=== PATIENT | female | born 1980 | race Caucasian/White ===

== ENCOUNTER 2021-08-12 11:48 | Inpatient (IN) | payer BC ==
[~2021-08-12] VITALS: Ht 162.6 cm; Wt 90.9 kg
[2021-08-12] VITALS (11 sets, daily range): BP systolic 100–117; BP diastolic 58–74
[2021-08-12] MEDS ORDERED: normal saline 1000ML IV soln IVB ONE (11:50)
[2021-08-12] MEDS ORDERED: ondansetron/PF 4mg/2ml inj IV ONE (11:50)
[2021-08-12 12:13] LABS: BASOPHILS # (AUTO) 0.1 X10'3 (0-0.2); BASOPHILS % (AUTO) 0.6 % (0-1); EOSINOPHILS # (AUTO) 0.1 X10'3 (0-0.9); EOSINOPHILS % (AUTO) 0.8 % (0-6); HEMOGLOBIN 14.4 g/dl (12.0-16.0); LYMPHOCYTES # (AUTO) 2.3 X10'3 (1.1-4.8); LYMPHOCYTES % (AUTO) 20.8 % (21-51); MEAN CORPUSCULAR HEMOGLOBIN 28.1 PG (27.0-31.0); MEAN CORPUSCULAR HGB CONC 34.4 g/dL (33.0-36.5); MEAN CORPUSCULAR VOLUME 81.5 FL (78-98); MEAN PLATELET VOLUME 8.5 FL (7.4-10.4); MONOCYTES # (AUTO) 0.6 X10'3 (0-0.9); MONOCYTES % (AUTO) 5.7 % (2-12); NEUTROPHILS # (AUTO) 7.9 X10'3 (1.8-7.7); NEUTROPHILS % (AUTO) 72.1 % (42-75); PLATELET COUNT 377 X10'3 (140-440); RED BLOOD COUNT 5.15 X10'6 (4.20-5.60); WHITE BLOOD COUNT 10.9 X10'3 (4.5-11.0)
[2021-08-12 12:24] LABS: ALANINE AMINOTRANSFERASE 19 U/L (12-78); ALBUMIN 3.7 G/DL (3.4-5.0); ALBUMIN/GLOBULIN RATIO 0.9 (1.1-1.5); ALKALINE PHOSPHATASE 106 IU/L (46-116); ANION GAP 8 (8-16); ASPARTATE AMINO TRANSFERASE 18 U/L (10-37); BILIRUBIN,TOTAL 0.5 MG/DL (0.1-1.0); BLOOD UREA NITROGEN 9 MG/DL (7-18); BUN/CREATININE RATIO 10.7 (6.6-38.0); CALCIUM 8.8 MG/DL (8.5-10.1); CHLORIDE 101 MMOL/L (99-107); CREATININE 0.84 MG/DL (0.40-0.90); GLUCOSE 102 MG/DL (70-104); LIPASE < 50 U/L (73-393); POTASSIUM 3.1 MMOL/L (3.5-5.1); SODIUM 137 MMOL/L (135-145); TOTAL CARBON DIOXIDE 27.9 MMOL/L (24-32); TOTAL PROTEIN 7.7 G/DL (6.4-8.2); eGFR 75 ML/MIN
[2021-08-12 12:29] LABS: HCG SERUM QL NEGATIVE
[2021-08-12] MEDS ORDERED: potassium CL 10mEq/100ml bag 100 ML IV ONE (12:55)
[2021-08-12 13:12] LABS: CLARITY,URINE SLIGHTLY CLOUDY (Clear); COLOR,URINE YELLOW (Yellow); GLUCOSE, URINE NEGATIVE (Neg); KETONES,URINE NEGATIVE (Neg); LEUKOCYTE ESTERASE ,URINE NEGATIVE (Neg); NITRITES, URINE NEGATIVE (Neg); OCCULT BLOOD,URINE NEGATIVE (Neg); PROTEIN,URINE NEGATIVE (Neg); UROBILINOGEN,URINE 0.2 E.U/dL (0.2-1.0)
[2021-08-12 13:34] LABS: UA COLLECTION TYPE NON-SPECIFIED
[2021-08-12 13:38] LABS: BACTERIA,URINE 1+ /HPF (Neg); MUCUS STRANDS MODERATE /LPF (Neg); RBC,URINE NONE SEEN /HPF (0-2); SQUAMOUS EPITHELIAL CELL,UR MODERATE /LPF (FEW); WBC,URINE 0-4 /HPF (0-4)
[2021-08-12] MEDS ORDERED: ESOM40CA54 PO (14:26)
[2021-08-12] MEDS ORDERED: HYDR25TA4 PO (14:26)
[2021-08-12] MEDS ORDERED: ESTR1TAB28 PO (14:26)
[2021-08-12] MEDS ORDERED: ATOR-2 PO (14:26)
[2021-08-12] MEDS ORDERED: magnesium 4gm in 100ml NS 100 ML IV PRN (14:30)
[2021-08-12] MEDS ORDERED: mag hydrox/Alum hydrox/simeth 30ml oral suspension PO PRN (14:30)
[2021-08-12] MEDS ORDERED: potassium CL 10mEq/100ml bag 100 ML IV PRN (14:30)
[2021-08-12] MEDS ORDERED: ondansetron/PF 4mg/2ml inj IV PRN ×2 (14:30→16:05)
[2021-08-12] MEDS ORDERED: acetaminophen 325mg tablet PO PRN ×2 (14:30)
[2021-08-12] MEDS ORDERED: magnesium 2GM in 50ml NS 50 ML IV PRN (14:30)
[2021-08-12] MEDS ORDERED: CefTRIAXone 2gm/NS 100ml IVPB 100 ML IV ONE (14:30)
[2021-08-12] MEDS ORDERED: POTASSIUM BICARB 20meq eff tab 20 MEQ TABLET.EFF PO PRN (14:30)
[2021-08-12] MEDS ORDERED: morphine 2 MG/ML inj. syringe IV PRN ×3 (14:30→16:05)
[2021-08-12] MEDS ORDERED: HYDROcodone/acetaminophen 5mg/325mg tablet PO PRN (14:30)
[2021-08-12] MEDS ORDERED: magnesium Cl slow-release 64mg tablet PO PRN (14:30)
[2021-08-12] MEDS: normal saline 1000ml 1,000 ML IV SCH ×2 (15:01→23:22)
--- NOTE | 2021-08-12 15:10 | NUR ---
DR THOMPSON AT BEDSIDE.
[2021-08-12] MEDS ORDERED: BUPIVAcaine/PF 2.5 mg/ml (0.25%) 30ml vial ONE (15:21)
--- NOTE | 2021-08-12 15:22 | NUR ---
PT HAS COMPLETE HYSTRECTOMY .
[2021-08-12] MEDS ORDERED: fentaNYL/PF 50MCG/1 ML 2ML syringe IV PRN ×2 (16:05)
[2021-08-12] MEDS ORDERED: ringers solution, lacted 1,000 ML IV SCH (16:05)
[2021-08-12] MEDS ORDERED: hydrALAZINE 20mg/ml inj. IV PRN (16:05)
[2021-08-12] MEDS ORDERED: labetalol 20mg/4ml (5mg/ml) syringe IV PRN (16:05)
[2021-08-12] MEDS ORDERED: morphine 4 MG/ML inj SYRINge IV PRN (16:05)
[2021-08-12] MEDS: pantoprazole 40mg Tablet.DR PO SCH (16:48)
[2021-08-12] MEDS: metroNIDAZOLE-Flagyl 500mg/NS 100 ML IV SCH ×2 (16:51→23:56)
[2021-08-12] MEDS ORDERED: midazolam 1 mg/ML 2ml injection ONE (20:42)
[2021-08-12] MEDS ORDERED: dexamethasone sod phosphate 10mg/ml inj ONE (20:42)
[2021-08-12] MEDS ORDERED: FENTANYL CITRATE/PF 50 MCG/1 ML VIAL ONE (20:42)
[2021-08-12] MEDS ORDERED: sevoflurane 250ml liquid IH ONE (20:42)
[2021-08-12] MEDS ORDERED: neostigmine methylsulfate 1 MG/ML 10ml vial ONE (20:42)
[2021-08-12] MEDS ORDERED: glycopyrrolate 0.2mg/ml inj ONE (20:42)
[2021-08-12] MEDS ORDERED: LIDOcaine 1%/PF 5ML 10 MG/ML VIAL ONE (20:43)
[2021-08-12] MEDS ORDERED: propofol inj 20 ML IV ONE (20:43)
[2021-08-12] MEDS ORDERED: ondansetron/PF 4mg/2ml inj ONE (20:44)
[2021-08-12] MEDS ORDERED: rocuronium 10mg/ml inj IV ONE (20:44)
[2021-08-12] MEDS ORDERED: temazepam 15mg capsule PO PRN (21:00)
[2021-08-12] MEDS ORDERED: acetaminophen 1,000mg/100ml IV 100 ML IV ONE (21:18)
--- NOTE | 2021-08-12 21:40 | NUR ---
Received from OR via BED, accompanied by Anesthesiologist ELIGIO and report given by Anesthesiolgist. PT DROWSY, OXYGENATING WELL ON 10 LPM O2 VIA MASK, NO RESP DISTRESS NOTED. NO C/O NAUSEA OR PAIN AT THIS TIME. 3 ABD TROCAR SITES DARLINE WITH DERMABOND, STABLE. VSS. SCDS ON.
[2021-08-12] MEDS: HYDROcodone/acetaminophen 10/325mg tab PO PRN (22:09)
--- NOTE | 2021-08-12 22:35 | NUR ---
Report called to receiving nurse. Transferred via BED Belongings WITH PT, 1 BAG OF BELONGINGS. VSS, INCISIONAL PAIN 7 AFTER MEDS GIVEN IN PACU, PT WILL AMBULATE WHEN ABLWE TO HELP RELIEVE THE PAIN. TOLERATING PO FLUIDS WELL. TRANSFERRED TO ORTHO FLOOR IN STABLE CONDITION. Special Issues communicated to receiving nurse.
[2021-08-12] MEDS: K and/or MAG REPLACEMENT MC SCH (23:07)
[2021-08-12] MEDS: POTASSIUM BICARB 20meq eff tab 20 MEQ TABLET.EFF PO PRN (23:23)
[2021-08-13 00:27] VITALS: BP 96/54
[2021-08-13 01:27] VITALS: BP 99/49
[2021-08-13 02:00] VITALS: BP 99/49
[2021-08-13 02:27] VITALS: BP 102/55
[2021-08-13] MEDS: POTASSIUM BICARB 20meq eff tab 20 MEQ TABLET.EFF PO PRN (02:57)
[2021-08-13] MEDS: HYDROcodone/acetaminophen 10/325mg tab PO PRN ×4 (03:02→18:12)
[2021-08-13 05:57] LABS: BASOPHILS % (AUTO) 0.2 % (0-1); EOSINOPHILS % (AUTO) 0.1 % (0-6); HEMATOCRIT 37.6 % (35.0-45.0); HEMOGLOBIN 12.9 g/dl (12.0-16.0); LYMPHOCYTES # (AUTO) 0.5 X10'3 (1.1-4.8); MEAN CORPUSCULAR HEMOGLOBIN 28.3 PG (27.0-31.0); MEAN CORPUSCULAR HGB CONC 34.3 g/dL (33.0-36.5); MEAN CORPUSCULAR VOLUME 82.5 FL (78-98); MEAN PLATELET VOLUME 9.1 FL (7.4-10.4); MONOCYTES % (AUTO) 0.5 % (2-12); NEUTROPHILS # (AUTO) 7.7 X10'3 (1.8-7.7); NEUTROPHILS % (AUTO) 93.2 % (42-75); PLATELET COUNT 328 X10'3 (140-440); RED BLOOD COUNT 4.55 X10'6 (4.20-5.60); WHITE BLOOD COUNT 8.2 X10'3 (4.5-11.0)
[2021-08-13 06:12] LABS: ALANINE AMINOTRANSFERASE 15 U/L (12-78); ALBUMIN 2.9 G/DL (3.4-5.0); ALBUMIN/GLOBULIN RATIO 0.9 (1.1-1.5); ALKALINE PHOSPHATASE 87 IU/L (46-116); ANION GAP 8 (8-16); ASPARTATE AMINO TRANSFERASE 21 U/L (10-37); BILIRUBIN,TOTAL 0.4 MG/DL (0.1-1.0); BLOOD UREA NITROGEN 7 MG/DL (7-18); BUN/CREATININE RATIO 9.2 (6.6-38.0); CHLORIDE 109 MMOL/L (99-107); CREATININE 0.76 MG/DL (0.40-0.90); GLUCOSE 133 MG/DL (70-104); POTASSIUM 4.1 MMOL/L (3.5-5.1); SODIUM 141 MMOL/L (135-145); TOTAL CARBON DIOXIDE 23.9 MMOL/L (24-32); TOTAL PROTEIN 6.3 G/DL (6.4-8.2); eGFR 84 ML/MIN
--- NOTE | 2021-08-13 06:20 | NUR ---
Report given to Richmond MOON
[2021-08-13 06:44] VITALS: BP 109/57
--- NOTE | 2021-08-13 07:09 | NUR ---
Patient in room ORTHO 4015. I have received report from Sharon MOON and had the opportunity to ask questions and assume patient care.
[2021-08-13] MEDS: pantoprazole 40mg Tablet.DR PO SCH ×2 (07:43→16:22)
[2021-08-13] MEDS: metroNIDAZOLE-Flagyl 500mg/NS 100 ML IV SCH ×2 (07:46→16:22)
[2021-08-13] MEDS: K and/or MAG REPLACEMENT MC SCH (08:00)
[2021-08-13] MEDS ORDERED: estradiol 1mg tablet PO SCH (08:00)
[2021-08-13] MEDS ORDERED: HYDROchlorothiazide 25mg tablet PO SCH (08:00)
[2021-08-13] MEDS ORDERED: atorvastatin 20mg tablet PO SCH (08:00)
[2021-08-13] MEDS: normal saline 1000ml 1,000 ML IV SCH (10:30)
[2021-08-13 11:05] VITALS: BP 104/54
--- NOTE | 2021-08-13 17:22 | NUR ---
PAGER ID: [phone] MESSAGE: Richmond Shepherd [phone] Re: [id number] Kieran Haley Patient cleared by surgery for discharge. Patient just needs pain control and can be discharged. Thanks
[2021-08-13] MEDS ORDERED: HYDR-3972 PO ×3 (17:29→17:46)
--- NOTE | 2021-08-13 17:39 | NUR ---
PAGER ID: [phone] MESSAGE: Richmond Shepherd [phone] Re [id number] spoke with Dr. Connors with some trouble shooting for you could you call back thanks
[2021-08-13] MEDS ORDERED: HYDR-3964 PO (17:49)
[2021-08-13] MEDS ORDERED: HYDR-3965 PO (17:53)
--- NOTE | 2021-08-13 18:44 | NUR ---
patient IV taken out by noc nurse and discharge was completed by noc charge nurse.
== END 2021-08-13 18:25 | disposition home or self-care (01) | DRG 343 ==
LOC: ER 11:49 → ED HOLD 14:36 → ORTHO 4S 22:46
PROVIDERS: ADMIT Internal Medicine; ATTEND Family Medicine
PROC: 0DTJ4ZZ Resection of Appendix, Percutaneous Endoscopic Approach (ICD-10-PCS; principal; 2021-08-12 20:42)
DX: K35.80 Unspecified acute appendicitis (principal); E78.00 Pure hypercholesterolemia, unspecified; E78.5 Hyperlipidemia, unspecified; Z20.822 Contact with and (suspected) exposure to COVID-19; R63.0 Anorexia; E87.6 Hypokalemia; E66.9 Obesity, unspecified; K21.9 Gastro-esophageal reflux disease without esophagitis; Z79.899 Other long term (current) drug therapy; Z87.442 Personal history of urinary calculi; Z90.710 Acquired absence of both cervix and uterus; Z68.34 Body mass index [BMI] 34.0-34.9, adult; Z88.0 Allergy status to penicillin; Z88.2 Allergy status to sulfonamides; Z88.8 Allergy status to other drugs, medicaments and biological substances; Z91.041 Radiographic dye allergy status
CPT/HCPCS: 36415; 71045; 74176; 80053; 81001; 83605; 83690; 84703; 85025; 85610; 87040; 87081; 87635; 96361; 96374; 99285; A4215; A4618; A7000; G0378; J0131; J0696; J1100; J2250; J2405; J2704; J2710; J3010; J3480; J3490; J7030; J7120